=== PATIENT | female | born 1960 | race Hispanic/Latino ===

== ENCOUNTER 2023-11-10 10:12 | Emergency (ER) | payer SELFPAY ==
[~2023-11-10] VITALS: Ht 144.8 cm; Wt 42.6 kg
[2023-11-10] MEDS: cloNIDine HCL 0.1 MG TABLET PO ONE (13:07)
[2023-11-10 14:02] VITALS: BP 168/79; PULSE 80; RESP 18; TEMP 98.2; O2SAT 98
[2023-11-10] MEDS ORDERED: HYDR50CA50 PO (14:13)
[2023-11-10] MEDS ORDERED: CLON0.1T PO (14:13)
== END 2023-11-10 14:34 | disposition home or self-care (01) ==
LOC: EDH 10:12
DX: G47.00 Insomnia, unspecified (principal); F41.1 Generalized anxiety disorder; I10 Essential (primary) hypertension; E11.9 Type 2 diabetes mellitus without complications; E78.00 Pure hypercholesterolemia, unspecified; Z98.890 Other specified postprocedural states